=== PATIENT | female | born 1980 | race Two or more races ===

== ENCOUNTER 2018-09-04 12:29 | Emergency (ER) | payer SELFPAY ==
[~2018-09-04] VITALS: Ht 160 cm; Wt 54.4 kg
--- NOTE | 2018-09-04 12:30 | NUR ---
CAME IN FOR SORETHROAT AND VAGINAL YEAST INFECTION X 3 DAYS, TO ER BED 16, HOOKED TO MONITOR, CHANGED TO GOWN, PROVIDED W WARM BLANKET, AWAITING MD VALDES.
--- NOTE | 2018-09-04 13:00 | NUR ---
PA MAIN AT BEDSIDE
--- NOTE | 2018-09-04 15:31 | NUR ---
Patient discharged to home in stable condition. Written and verbal after care instructions given. Patient verbalizes understanding of instruction.
[2018-09-04 15:32] VITALS: BP 130/84
== END 2018-09-04 15:25 | disposition home or self-care (01) ==
LOC: ER 12:29
DX: B37.3 Candidiasis of vulva and vagina (principal); J02.9 Acute pharyngitis, unspecified; E78.00 Pure hypercholesterolemia, unspecified; I73.00 Raynaud's syndrome without gangrene
CPT/HCPCS: 84703-TC; 86403-TC; 87070-TC; 87210-TC